=== PATIENT | male | born 1985 | race Hispanic/Latino ===

== ENCOUNTER 2016-12-25 06:42 | Day surgery (SDC) | payer MEDICARE, OTHER ==
[2016-12-25] MEDS ORDERED: ECOTRIN PO ONE (07:11)
[2016-12-25 07:50] LABS: Basophils % (Auto) 0.4 % (0.0-1.8); Eosinophils % (Auto) 1.2 % (0.0-4.3); Hematocrit 41.9 % (35.5-45.6); Hemoglobin 14.2 gm/dl (11.8-15.2); Mean Corpuscular HGB Conc 34 % (32-34); Mean Corpuscular Hemoglobin 29 pg (28-32); Mean Corpuscular Volume 85 fl (84-94); Platelet Count 184 K/mm3 (140-440); Red Blood Count 4.91 M/mm3 (3.65-5.03); Red Cell Distribution Width 13.9 % (13.2-15.2); White Blood Count 6.2 K/mm3 (4.5-11.0)
[2016-12-25 07:59] LABS: Anion Gap 18 mmol/L; BUN/Creatinine Ratio 11.66; Blood Urea Nitrogen 14 mg/dL (9-20); Calcium 8.9 mg/dL (8.4-10.2); Carbon Dioxide 24 mmol/L (22-30); Glucose 115 mg/dL (75-100); Potassium 4.1 mmol/L (3.6-5.0); Sodium 141 mmol/L (137-145)
[2016-12-25] MEDS ORDERED: NACL 0.9% 500 ML 500 ML IV SCH (08:00)
[2016-12-25 08:02] LABS: INR 1.04 (0.87-1.13)
[2016-12-25] MEDS: XYLOCAINE 2% INFILTRATI ONE ×2 (08:52→09:18)
[2016-12-25] MEDS: VERSED ONE ×2 (08:52→09:15)
[2016-12-25] MEDS: SUBLIMAZE ONE ×2 (08:52→09:15)
[2016-12-25] MEDS: CALAN ONE ×2 (08:52→09:20)
[2016-12-25] MEDS: HEPARIN 10,000 UNITS/10 ML ONE ×2 (08:53→09:20)
[2016-12-25] MEDS: HEPARIN/NS 5000 UNIT/500ML(CATH LAB) 1,000 ML IR ONE ×2 (08:54→09:20)
[2016-12-25] MEDS: NITROGLYCERIN SYRINGE 3 ML ONE ×2 (08:54→09:20)
--- NOTE | 2016-12-25 11:15 | Cardiac Catherization Report ---
CARDIAC CATHETERIZATION REFERRING PHYSICIAN: Arthur Garibay MD INDICATION FOR PROCEDURE: The patient is a pleasant 31-year-old gentleman with recurrent chest pain, hypertension, very typical features of chest pain despite negative stress test. We offered him medical management, cardiac CT versus cardiac catheterization, he would like to proceed with cardiac catheterization. Risks, benefits, and alternatives discussed at length prior to obtaining informed consent. 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 Boni's test in right hand was normal. A 2 mL of 2% lidocaine used to anesthetize the right wrist. A standard 6-Swedish hydrophilic sheath used to cannulate the right radial artery via modified Seldinger technique. All exchanges performed to exchange a J-tip guidewire. JL3.5 catheter used to engage the left main. No dampening or ventricularization. Cineangiography performed in all projections. JR4 catheter used to cross the aortic valve under fluoroscopic guidance. Left ventriculography performed in 30 KILPATRICK and 30 ANASTACIA projections via hand injections, catheter flushed. Manual pullback performed with continuous pressure monitoring. Catheter used to engage the right coronary. No dampening or ventricularization. Cineangiography performed in all projections. Next, due to recurrent chest pain, hypertension, and normal coronaries, we proceeded with root aortography with a pigtail catheter in the ANASTACIA projection with a power injector. Next, catheter removed from the body of wire, sheath removed. Manual pressure used to achieve hemostasis. No complications. The patient tolerated the procedure well and chest pain free. DATA: Aortic pressure is 130/90, LV pressure is 130, LVEDP of 12 mmHg. Left ventriculography revealed normal systolic performance with estimated ejection fraction of 55-60%. No evidence of aortic stenosis. CORONARY ANATOMY: This is a right dominant system. No significant disease in this right coronary. Left main without significant disease, bifurcates in the left anterior descending and left circumflex. Left circumflex is a moderate sized vessel, courses AV groove. No significant disease. LAD is a moderate sized vessel, courses anterior interventricular groove, wraps around the apex, no significant disease. Right coronary is a moderate sized vessel, courses AV groove, distally bifurcates into the posterior descending and posterolateral branches. No significant disease. Root aortography reveals normal contour and caliber, no evidence of aortic insufficiency, penetrating aortic ulcer or aortic dissection. CONCLUSIONS: 1. No angiographic evidence of significant epicardial coronary artery disease in this right dominant system. 2. Normal left ventricular systolic performance with estimated ejection fraction of 55-60%. 3. No evidence of aortic stenosis. 4. Normal LVEDP. 5. Normal root aortography without evidence of dissection, aortic insufficiency, or penetrating aortic ulcer. Aggressive medical therapy. Primary and secondary prevention measures. Results of procedure explained in length to the patient and family. All questions and concerns were addressed. JOB# [id number] SBIndra/NTS
--- NOTE | 2016-12-25 11:55 | Short Stay Summary ---
Short Stay Documentation Date of service: 12/25/16 - History H&P: obtained from office - Allergies and Medications Current Medications: Allergies gabapentin [From Neurontin] Allergy (Verified 12/25/16 07:11) Swelling Home Medications Medication Instructions Recorded Confirmed Last Taken Type Aspirin EC [Aspirin Enteric Coated 81 mg PO DAILY 12/25/16 12/25/16 12/24/16 History TAB] AtorvaSTATin [Lipitor] 20 mg PO DAILY 12/25/16 12/25/16 12/24/16 History Metoprolol [Lopressor TAB] 25 mg PO BID 12/25/16 12/25/16 12/25/16 History Pantoprazole [Protonix TAB] 40 mg PO DAILY 12/25/16 12/25/16 12/24/16 History Active Medications Sodium Chloride (Nacl 0.9% 500 Ml) 500 mls @ 50 mls/hr IV DIRECT ZHAO Stop: 12/25/16 17:59 Last Admin: 12/25/16 07:52 Dose: 50 mls/hr Short Stay Discharge Plan Follow up with: MARCIA LONGORIA MD [Primary Care Provider] - 7 Days Forms: CardCath PCI D/C Instructions
[2016-12-25 11:57] VITALS: BP 157/82
== END 2016-12-25 12:31 | disposition home or self-care (01) ==
LOC: OPU 06:42
PROVIDERS: ATTEND Internal Medicine
DX: R07.9 Chest pain, unspecified (principal); R94.39 Abnormal result of other cardiovascular function study; I10 Essential (primary) hypertension; E66.3 Overweight; Z68.39 Body mass index [BMI] 39.0-39.9, adult; Z79.899 Other long term (current) drug therapy; Z72.89 Other problems related to lifestyle; Z87.891 Personal history of nicotine dependence; Z82.49 Family history of ischemic heart disease and other diseases of the circulatory system
CPT/HCPCS: 36415; 80048; 85025; 85610; 85730; 93005; 93010; 93458; 93567; C1894; J1644; J2250; J3010; J7040; Q9967

== ENCOUNTER 2017-07-23 10:53 | Emergency (ER) | payer MEDICARE, OTHER ==
[2017-07-23] MEDS ORDERED: TORADOL IM ONE (11:27)
--- NOTE | 2017-07-23 11:27 | Emergency Department Report ---
Stated Complaint: BACK INJURY Time Seen by Provider: 07/23/17 11:25 - HPI History of Present Illness: PT states he was pulling a box with boxes stacked on it. PT states he felt a snap in his back and his pain radiated up his neck - ROS Review of Systems: + gait change + decrease in ROM of back - Exam Physical Exam: PT appears uncomfortable + lumbar vertebral and paraspinal tenderness MSE screening note: Focused history and physical exam performed. Due to findings the following was ordered: xr meds ED Disposition for MSE Condition: Stable
--- NOTE | 2017-07-23 14:19 | XRay Report ---
AP and lateral of the lumbar spine. History: Low back pain. Findings: The lumbar vertebral and disc spaces appear normal. Bone mineralization is normal. The pedicles are intact. There is mild anterior wedging of the T12 vertebral body which is included on this image. No evidence of an acute fracture is seen. There is narrowing of the disc space at T12-L1. Impression: Normal lumbar spine. 2. Mild anterior wedge deformity of T12 which appears chronic. Discogenic changes are also noted at T12-L1
[2017-07-23] MEDS ORDERED: ZOFRAN ODT ONE (16:25)
[2017-07-23] MEDS ORDERED: MORPHINE IM ONE (16:52)
[2017-07-23] MEDS ORDERED: VALIUM PO ONE (16:52)
--- NOTE | 2017-07-23 17:45 | Cat Scan Report ---
FINAL REPORT EXAM: CT CERVICAL SPINE WO CON HISTORY: neck pain TECHNIQUE: Standard CT cervical spine obtained at 2.5 millimeter axial increments. Coronal and sagittal reconstruction was also performed. PRIORS: None. FINDINGS: The vertebral bodies are intact. There is no evidence for acute fracture. There is no evidence for paravertebral soft tissue swelling. Alignment is maintained. IMPRESSION: Negative CT of the cervical spine.
--- NOTE | 2017-07-23 17:51 | Cat Scan Report ---
FINAL REPORT EXAM: CT THORACIC SPINE WO CON HISTORY: upper back pain TECHNIQUE: Standard CT thoracic spine obtained at 1.25 millimeter axial increments. Coronal and sagittal reconstruction was also performed. PRIORS: None. FINDINGS: The vertebral bodies are intact. There is no evidence for acute fracture. There is no evidence for paravertebral soft tissue swelling. Alignment is maintained. Spinal cord stimulator devices are seen in the posterior spinal canal at T7 and T8. Mild neural foraminal narrowing to the right at T10-T11 is noted. IMPRESSION: No acute abnormality of the thoracic spine.
--- NOTE | 2017-07-23 18:05 | Cat Scan Report ---
FINAL REPORT EXAM: CT LUMBAR SPINE WO CON HISTORY: low back pain TECHNIQUE: Spiral high-resolution unenhanced 2.5 millimeter axial images were obtained through the lumbar spine. Sagittal and coronal plane are reconstructions were performed. PRIORS: None. FINDINGS: Counting reference: Lumbosacral junction. For the purposes of this report, L4-L5 is considered the level of the iliac crest. Bone marrow/ Fracture: No evidence for acute or chronic fracture is seen. No evidence of a lytic or blastic process in the visualized spine. Alignment: Alignment is anatomic. Disc spaces: Disc spaces are maintained throughout. Spinal canal and foramina are patent. Paraspinal soft tissues: The paraspinal soft tissues show no evidence for paravertebral hematoma or soft tissue mass. Sacrum and iliac wings: Visualized portions of the sacrum and iliac wings appear intact without fracture. The presacral soft tissues are normal in appearance. IMPRESSION: no evidence of acute fracture. Negative exam.
--- NOTE | 2017-07-23 18:34 | Emergency Department Report ---
ED Back Pain/Injury HPI - General Chief Complaint: Back Pain/Injury Stated Complaint: BACK INJURY Time Seen by Provider: 07/23/17 11:25 Source: patient Limitations: No Limitations - History of Present Illness Initial Comments: Patient is a 31-year-old male with history of chronic back pain who presents due to neck pain, upper back pain and lower back pain that started 8 hours ago while out work. Patient states that he injured his back while pulling boxes at work. Patient states that he has severe pain similar to when he injured his back in [place]. Patient denies any numbness, he admits of having tingling sensation in his feet. Patient denies any urinary or bowel incontinence. Patient denies any dysuria, hematuria or frequency. Patient stated that he injured his back in [place] in 2006, he states that he has a spinal stimulator that was placed 3 years ago. Complaint: back pain Onset/Timin -: hour(s) Similar Symptoms Previously: Yes Place: work Radiation: other (upper back and neck) Severity: severe Severity scale (0 -10): 10 Quality: aching Consistency: constant Improves With: immobilization Worsens With: movement Associated Symptoms: denies other symptoms - Related Data Home Medications Medication Instructions Recorded Confirmed Last Taken Aspirin EC [Aspirin Enteric Coated 81 mg PO DAILY 12/25/16 12/25/16 12/24/16 TAB] AtorvaSTATin [Lipitor] 20 mg PO DAILY 12/25/16 12/25/16 12/24/16 Metoprolol [Lopressor TAB] 25 mg PO BID 12/25/16 12/25/16 12/25/16 Pantoprazole [Protonix TAB] 40 mg PO DAILY 12/25/16 12/25/16 12/24/16 Previous Rx's Medication Instructions Recorded Last Taken Type Acetaminophen/Codeine [Tylenol 1 tab PO Q6H PRN #15 tab 07/23/17 Unknown Rx /Codeine # 3 tab] Ibuprofen [Motrin 800 MG tab] 800 mg PO Q8HR PRN #30 tablet 07/23/17 Unknown Rx Methocarbamol [Robaxin TAB] 750 mg PO Q8H PRN #15 tablet 07/23/17 Unknown Rx Allergies Allergy/AdvReac Type Severity Reaction Status Date / Time gabapentin [From Neurontin] Allergy Unknown Unverified 07/23/17 11:29 ED Review of Systems ROS: Stated complaint: BACK INJURY Other details as noted in HPI Comment: All other systems reviewed and negative Constitutional: no symptoms reported. denies: chills, diaphoresis, fever, malaise, weakness Musculoskeletal: back pain. denies: joint swelling, arthralgia, myalgia Skin: denies: rash Neurological: denies: headache, weakness, numbness, paresthesias, confusion Psychiatric: denies: anxiety ED Past Medical Hx - Past Medical History Previous Medical History?: Yes Hx Hypertension: Yes Hx Arthritis: Yes Hx Kidney Stones: Yes - Surgical History Past Surgical History?: Yes Hx Appendectomy: Yes - Social History Smoking Status: Never Smoker Substance Use Type: None - Medications Home Medications: Home Medications Medication Instructions Recorded Confirmed Last Taken Type Aspirin EC [Aspirin Enteric Coated 81 mg PO DAILY 12/25/16 12/25/16 12/24/16 History TAB] AtorvaSTATin [Lipitor] 20 mg PO DAILY 12/25/16 12/25/16 12/24/16 History Metoprolol [Lopressor TAB] 25 mg PO BID 12/25/16 12/25/16 12/25/16 History Pantoprazole [Protonix TAB] 40 mg PO DAILY 12/25/16 12/25/16 12/24/16 History Acetaminophen/Codeine [Tylenol 1 tab PO Q6H PRN #15 tab 07/23/17 Unknown Rx /Codeine # 3 tab] Ibuprofen [Motrin 800 MG tab] 800 mg PO Q8HR PRN #30 tablet 07/23/17 Unknown Rx Methocarbamol [Robaxin TAB] 750 mg PO Q8H PRN #15 tablet 07/23/17 Unknown Rx ED Physical Exam - General Limitations: No Limitations General appearance: alert, in no apparent distress - Head Head exam: Present: atraumatic, normocephalic, normal inspection - Neck Neck exam: Present: tenderness, other (limited ROM due to pain). Absent: meningismus, full ROM, lymphadenopathy, thyromegaly - Expanded Neck Exam Expanded Neck exam: Present: tenderness. Absent: midline deformity, anterior neck swelling, thyroid mass, carotid bruit, tracheal deviation - Extremities Exam Extremities exam: Present: normal inspection, full ROM. Absent: tenderness - Back Exam Back exam: Present: tenderness, muscle spasm, vertebral tenderness (cervical, thoracic and lumbar spine tenderness. ). Absent: CVA tenderness (L), paraspinal tenderness - Expanded Back Exam Expanded Back exam: Absent: saddle anesthesia - Neurological Exam Neurological exam: Present: alert, oriented X3, normal gait - Psychiatric Psychiatric exam: Present: normal affect, normal mood - Skin Skin exam: Present: warm, dry, intact ED Course Vital Signs 07/23/17 07/23/17 07/23/17 11:23 12:13 18:05 Temperature 99 F Pulse Rate 72 Respiratory 16 18 18 Rate Blood Pressure 148/107 O2 Sat by Pulse 97 Oximetry ED Medical Decision Making - Radiology Data Radiology results: report reviewed CT scan of the cervical spine, thoracic spine and lumbar spine did not show any acute osseous findings. It showed chronic degenerative changes and the spinal stimulator. - Medical Decision Making Patient had severe back pain upon arrival, patient had no neurological focal deficits, sensory function was intact. Motor function was 5 out of 5 in upper and lower extremities. Patient was given morphine IM and Valium by mouth in the ER. Patient was reevaluated and he stated that he felt better. Patient was discharged with prescription for Robaxin, Tylenol with codeine and ibuprofen. Patient was told to follow-up with his health care law specialist. Patient was told to return to the ER if he had any urinary incontinence, bowel incontinence or numbness. - Differential Diagnosis lumbar strain, thoracic strain, cervical strain, muscle spasms Critical care attestation.: If time is entered above; I have spent that time in minutes in the direct care of this critically ill patient, excluding procedure time. ED Disposition Clinical Impression: History of chronic back pain Lumbar strain Qualifiers: Encounter type: initial encounter Qualified Code(s): S39.012A - Strain of muscle, fascia and tendon of lower back, initial encounter Thoracic myofascial strain Qualifiers: Encounter type: initial encounter Qualified Code(s): S29.019A - Strain of muscle and tendon of unspecified wall of thorax, initial encounter Cervical strain Qualifiers: Encounter type: initial encounter Qualified Code(s): S16.1XXA - Strain of muscle, fascia and tendon at neck level, initial encounter Disposition: - TO HOME OR SELFCARE Is pt being admited?: No Does the pt Need Aspirin: No Condition: Good Instructions: Muscle Strain (ED), Muscle Spasm (ED) Additional Instructions: Take Robaxin 750 mg every 8 hours as needed for muscle spasms, take Tylenol with codeine one tablet every 6 hours as needed for severe pain. Take ibuprofen 800 mg every 8 hours as needed for moderate pain. Follow-up with the provided health care law specialist or with your orthopedic specialists for follow- up evaluation. Return to the ER for any numbness, urinary or bowel incontinence. Prescriptions: Acetaminophen/Codeine [Tylenol /Codeine # 3 tab] 1 tab PO Q6H PRN #15 tab PRN Reason: Pain Ibuprofen [Motrin 800 MG tab] 800 mg PO Q8HR PRN #30 tablet PRN Reason: Pain Methocarbamol [Robaxin TAB] 750 mg PO Q8H PRN #15 tablet PRN Reason: Muscle Spasm Referrals: PRIMARY CARE, [Primary Care Provider] - 3-5 Days Forms: Work/School Release Form(ED) Time of Disposition: 18:36
[2017-07-23 18:57] VITALS: BP 146/98
== END 2017-07-23 18:57 | disposition home or self-care (01) ==
LOC: ED 10:53
DX: S39.012A Strain of muscle, fascia and tendon of lower back, initial encounter (principal); S29.019A Strain of muscle and tendon of unspecified wall of thorax, initial encounter; S16.1XXA Strain of muscle, fascia and tendon at neck level, initial encounter; I10 Essential (primary) hypertension; M19.90 Unspecified osteoarthritis, unspecified site; Z79.82 Long term (current) use of aspirin; Z88.8 Allergy status to other drugs, medicaments and biological substances; X58.XXXA Exposure to other specified factors, initial encounter; Y93.9 Activity, unspecified; Y99.9 Unspecified external cause status; Y92.89 Other specified places as the place of occurrence of the external cause
CPT/HCPCS: 72100; 72125; 72128; 72131; 96372; 99284; J1885; J2270; Q0162